=== PATIENT | female | born 1945 | race Caucasian/White ===

== ENCOUNTER 2018-12-04 00:44 | Outpatient (CLI) | payer MEDICARE, OTHER ==
[2018-12-04 14:48] LABS: #Basophils 0.1 thou/uL (0.0-0.2); #Eosinphils 0.3 thou/uL (0.0-0.7); #Lymphocytes 1.3 thou/uL (1.20-3.40); #Monocytes 0.5 thou/uL (0.11-0.59); #Neutrophils 2.5 thou/uL (1.40-6.50); %Eosinophils 6.5 % (0.0-10.0); %Lymphocytes 27.3 % (21.0-51.0); %Monocytes 11.1 % (0.0-10.0); %Neutrophils 53.2 % (42.0-75.0); Hemoglobin 15.5 g/dL (12.0-16.0); Mean Corpuscular HGB CONC 32.8 g/dL (32.0-36.0); Mean Corpuscular Hemoglobin 29.7 pg (27.0-31.0); Mean Corpuscular Volume 90.6 fL (78.0-98.0); Mean Platelet Volume 8.7 fL (7.4-10.4); Platelet Count 268 thou/uL (130-400); RBC Distribution Width 13.3 % (11.5-14.5); Red Blood Cell (RBC) Count 5.22 mill/uL (4.20-5.40); White Blood Cell (WBC) Count 4.7 thou/uL (4.8-10.8)
[2018-12-04 15:01] LABS: Anion Gap 14 mmol/L (10-20); BUN (Urea Nitrogen) 16 mg/dL (9.8-20.1); Calc. Creatinine Clearance 0 mL/min (70-130); Calcium 9.8 mg/dL (7.8-10.44); Carbon Dioxide 25 mmol/L (23-31); Chloride 98 mmol/L (98-107); Estimated GFR-MDRD 77; Glucose 103 mg/dL (83-110); Potassium 3.8 mmol/L (3.5-5.1); Sodium 133 mmol/L (136-145)
--- NOTE | 2018-12-05 09:36 | EKG ---
Test Reason : Blood Pressure : / mmHG Vent. Rate : 078 BPM Atrial Rate : 078 BPM P-R Int : 148 ms QRS Dur : 084 ms QT Int : 376 ms P-R-T Axes : 066 -10 066 degrees QTc Int : 428 ms Normal sinus rhythm Cannot rule out Anterior infarct , age undetermined Abnormal ECG No previous ECGs available Confirmed by DR. Ivan HICKS ([id number]) on 12/05/2018 9:35:41 AM Referred By: BRYANT Confirmed By:DR. Ivan HICKS
== END 2018-12-04 00:45 | disposition home or self-care (01) ==
LOC: LABBT 00:44
PROVIDERS: ATTEND Orthopaedic Surgery
DX: Z01.818 Encounter for other preprocedural examination (principal); G56.01 Carpal tunnel syndrome, right upper limb
CPT/HCPCS: 80048; 85025; 93005; 93010

== ENCOUNTER 2018-12-06 06:57 | Day surgery (SDC) | payer MEDICARE, OTHER ==
[2018-12-04 13:15] VITALS: BMI 34.3
--- NOTE | 2018-12-05 09:06 | HP ---
HISTORY OF PRESENT ILLNESS: The patient is a 73-year-old right-handed female, who sustained a fracture of her right distal radius and a fall on 09/02/2018. She underwent closed reduction and splinting and was subsequently treated conservatively. The fracture is healed with slight displacement, but she has subsequently developed progressive symptoms of carpal tunnel syndrome with numbness in the median nerve distribution, which had persisted despite rest, restriction of activities, splinting, and anti-inflammatory medications. Numbness has progressively become worse. She has had no symptoms prior to her injury. PAST MEDICAL HISTORY: The patient is otherwise in good health. She has history of high cholesterol, hypertension, reflux, and chronic sinusitis. CURRENT MEDICATIONS: Include; 1. Flonase. 2. Nexium. 3. Valsartan. 4. Crestor. 5. Paroxetine. ALLERGIES: SHE HAS NO KNOWN ALLERGIES. FAMILY HISTORY: Otherwise, unremarkable. SOCIAL HISTORY: Otherwise, unremarkable. REVIEW OF SYSTEMS: Otherwise, unremarkable. PHYSICAL EXAMINATION: GENERAL: Reveals a healthy female. HEENT: Unremarkable. NECK: Supple. CHEST: Clear. HEART: Regular rate and rhythm. ABDOMEN: Soft and nontender. PELVIC, RECTAL, AND BREASTS: Deferred. EXTREMITIES: Pertinent findings related to the right wrist. There is minimal swelling. There is no definite atrophy. There is slight deformity. There is no bony tenderness. There is tenderness over the median nerve and there is mild loss of wrist motion. Motor exam is intact. She has good finger motion. She has subjective numbness in the median nerve distribution. She has negative Tinel's sign and positive Phalen's test. She has good capillary refill. Ulnar sensation is intact. DIAGNOSTIC STUDIES: X-rays of her wrist reveal a fracture of the distal radius, which has healed with slight dorsal displacement and slight shortening, but overall position is acceptable. IMPRESSION: 1. Right carpal tunnel syndrome. 2. Status post fracture of right distal radius. PLAN: Endoscopic possible open right carpal tunnel release. The nature of the surgery, length of recovery, and potential complications such as infection, loss of motion, incomplete relief, nerve injury, recurrence, and need for additional treatment and repeat surgery have been discussed in detail. Job ID: [id number]
[2018-12-06] MEDS ORDERED: Fentanyl 100 MCG/2 ML VIAL ONE ×2 (08:10→10:12)
[2018-12-06] MEDS ORDERED: Lidocaine 1% (PF) 30 ML VIAL ONE (08:52)
[2018-12-06] MEDS ORDERED: PROPOFOL 200 MG/20 ML VIAL ONE (10:27)
[2018-12-06] MEDS ORDERED: Lidocaine 1% PF 5 ML VIAL ONE (10:27)
[2018-12-06] MEDS ORDERED: Dexamethasone 20 MG/5 ML VIAL ONE (10:27)
[2018-12-06] MEDS ORDERED: Ondansetron PF 4 MG/2 ML Vial ONE (10:27)
--- NOTE | 2018-12-06 13:31 | OP ---
DATE OF PROCEDURE: 12/06/2018 PREOPERATIVE DIAGNOSIS: Right carpal tunnel syndrome. POSTOPERATIVE DIAGNOSIS: Right carpal tunnel syndrome. PROCEDURE PERFORMED: Right endoscopic carpal tunnel release. ANESTHESIA: General. DESCRIPTION OF PROCEDURE: After satisfactory anesthesia was induced in supine position, the patient was prepped and draped in the routine manner. The right arm was elevated and exsanguinated with an Esmarch bandage and the tourniquet was inflated to 250 mmHg. A 2-cm transverse incision was made in the proximal wrist flexion crease and carried down through the subcutaneous tissues and bleeding points were controlled with the Bovie cautery. Using sharp and blunt dissection, a distally based flap at deep forearm fascia was developed and retracted distally. Palmaris longus tendon was retracted radially. Proximal edge of the deep forearm fascia was split under direct visualization with small scissors to make sure there was no proximal impingement of the median nerve. Synovial elevator was introduced beneath the transverse carpal ligament and the synovium was cleaned from the under surface. Carpal tunnel dilators were inserted. The [employer] endoscopic carpal tunnel system was introduced beneath the transverse carpal ligament in line with the ring finger. The distal edge of the ligament was easily identified and divided in a distal proximal direction by pulling the trigger of the assembly and engaging the knife and withdrawing the scope proximally. This was done at several stages to make sure there was complete division of the transverse carpal ligament, which was documented with the video printer. After withdrawing the scope, the carpal tunnel dilator could be inserted into the carpal tunnel and there was markedly improved passage and subcutaneous position of the instrument. The scope was reintroduced into the carpal tunnel. However, there was wide separation of the two leaves of the transverse carpal ligament. The tourniquet was released after 4 minutes. There was no excessive bleeding, and the scope was withdrawn. The wound was irrigated and closed with running subcuticular 3-0 nylon. Sterile dressing was applied and the patient immobilized in a Velcro wrist splint. She was awakened, taken to the Recovery Room in stable condition. There were no apparent intraoperative complications. The estimated blood loss was negligible. The patient will be discharged home in satisfactory condition. She will be started on ice and elevation, given written wound care instructions. She has Tylenol No. 3 at home for pain. She will be rechecked in my office in 10 to 14 days or sooner if there are any problems prior to that time. Job ID: [id number]
== END 2018-12-06 11:56 | disposition home or self-care (01) ==
LOC: SDC 06:57
PROVIDERS: ATTEND Orthopaedic Surgery
PROC: 01N54ZZ Release Median Nerve, Percutaneous Endoscopic Approach (ICD-10-PCS; principal; 2018-12-06)
DX: G56.01 Carpal tunnel syndrome, right upper limb (principal); E78.00 Pure hypercholesterolemia, unspecified; K21.9 Gastro-esophageal reflux disease without esophagitis; F41.9 Anxiety disorder, unspecified; I10 Essential (primary) hypertension; Z79.51 Long term (current) use of inhaled steroids; Z79.899 Other long term (current) drug therapy
CPT/HCPCS: J1100; J2001; J2405; J2704; J3010